=== PATIENT | female | born 1930 | race Caucasian/White ===

== ENCOUNTER 2019-01-17 10:38 | Emergency (ER) | payer MEDICARE, BC ==
--- NOTE | 2019-01-17 13:26 | UC ---
Knee Pain HPI - HPI Summary HPI Summary: WOKE UP THIS MORNING WITH LEFT KNEE PAIN AND SWELLING. PATIENT HAS PAIN WITH WEIGHTBEARING. DENIES ANY RECENT TRAUMA OR INJURY. NO PREVIOUS CHRONIC LEFT KNEE PAIN BUT PATIENT STATES SHE HAS OCCASIONAL JOINT PAIN ALL OVER HER BODY. TOOK 2 ALEVE THIS MORNING WITH NO IMPROVEMENT. - History of Current Complaint Chief Complaint: UCLowerExtremity Stated Complaint: KNEE PAIN Time Seen by Provider: 01/17/19 12:10 Hx Obtained From: Patient Onset/Duration: Sudden Onset, Lasting Hours, Still Present Severity Initially: Moderate Severity Currently: Moderate Pain Intensity: 10 Pain Scale Used: 0-10 Numeric Character: Sharp Aggravating Factor(s): Weight Bearing Alleviating Factor(s): Rest Associated Signs And Symptoms: Positive: Swelling Able to Bear Weight: Yes - WITH PAIN - Allergies/Home Medications Allergies/Adverse Reactions: Allergies Allergy/AdvReac Type Severity Reaction Status Date / Time Penicillins Allergy GI Upset Verified 01/17/19 10:55 scopolamine Allergy sweating Verified 01/17/19 10:56 BACTRIM Allergy Severe "KNOCKED Uncoded 02/04/16 19:30 ME FOR A LOOP, MADE ME SICK" Home Medications: Home Medications Atenolol 1 tab PO DAILY 01/17/19 [History Confirmed 01/17/19] Levothyroxine Sodium [Synthroid] 88 mcg PO DAILY 01/17/19 [History Confirmed ] Metoprolol Succinate 1 tab PO DAILY 01/17/19 [History Confirmed 01/17/19] Xarelto 15 mg(*) 1 tab PO DAILY 01/17/19 [History Confirmed 01/17/19] PMH/Surg Hx/FS Hx/Imm Hx Endocrine History: Hypothyroidism Cardiovascular History: Hypertension, Atrial Fibrillation - Surgical History Surgical History: Yes Surgery Procedure, Year, and Place: RLE ORIF, APPENDECTOMY, HYSTERECTOMY, BILAT CATARACTS - Family History Known Family History: Positive: None - Social History Alcohol Use: Daily Alcohol Amount: 2 OUNCES/DAY Substance Use Type: None Smoking Status (MU): Former Smoker Review of Systems All Other Systems Reviewed And Are Negative: Yes Constitutional: Positive: Negative Skin: Positive: Negative Respiratory: Positive: Negative Cardiovascular: Positive: Negative Gastrointestinal: Positive: Negative Musculoskeletal: Positive: Arthralgia, Decreased ROM, Edema. Negative: Calf Tenderness Physical Exam Triage Information Reviewed: Yes Appearance: Well-Appearing, No Pain Distress, Well-Nourished Vital Signs: Initial Vital Signs Temp 98.2 F 01/17/19 10:52 Pulse 55 01/17/19 10:52 Resp 16 01/17/19 10:52 BP 188/78 01/17/19 10:52 Pulse Ox 100 01/17/19 10:52 Vital Signs Reviewed: Yes Eyes: Positive: Conjunctiva Clear ENT: Positive: Hearing grossly normal Neck: Positive: Supple Respiratory: Positive: No respiratory distress, No accessory muscle use Cardiovascular: Positive: Pulses Normal Abdomen Description: Positive: Soft Musculoskeletal: Positive: ROM Limited @ - LEFT KNEE FLEXION, Edema @ - LEFT KNEE SLIGHTLY SWOLLEN, Other: - NO JOINT LINE TENDERNESS OR TENDERNESS OVER ANY BONY PROMINENCES. MCL AND LCL INTACT TO STRESS TESTING. NEG LACHMANS. NEG DRAWERS SIGNS. NEG MCMURRAYS. EQUIVOCAL PATELLAR APPREHENSION TEST. MILD TENDERNESS OVER PATELLAR LIGAMENT. NO TENDERNESS OVER QUADRICEPS TENDON. DECREASED ROM (FLEXION). Neurological: Positive: Alert Psychological: Positive: Age Appropriate Behavior Skin: Negative: Rashes Diagnostics - Radiology LEFT KNEE XRAYS Radiology Interpretation Completed By: Radiologist Summary of Radiographic Findings: SMALL JOINT EFFUSION, NO FRACTURE IS SEEN Knee Pain Course/Dx - Course Course Of Treatment: LEFT KNEE X-RAY TODAY SHOWS A SMALL JOINT EFFUSION BUT NO BONY INJURY. SUSPECT PATELLOFEMORAL SYNDROME AND OSTEOARTHRITIS CONTRIBUTING CONDITIONS TO PATIENT 'S SYMPTOMS. HAVE ADVISED FOLLOW-UP WITH ORTHOPEDICS NEXT WEEK FOR FURTHER EVALUATION. KNEE IMMOBILIZER NEEDED FOR COMFORT. HAVE ENCOURAGED DAILY RANGE OF MOTION EXERCISES. - Differential Dx/Diagnosis Provider Diagnosis: Osteoarthritis of left knee, Patellofemoral arthralgia of left knee Discharge - Sign-Out/Discharge Documenting (check all that apply): Patient Departure All imaging exams completed and their final reports reviewed: Yes - Discharge Plan Condition: Stable Disposition: HOME Prescriptions: traMADol TAB* [Ultram*] 50 mg PO Q6HR PRN #10 tab MDD 4 PRN Reason: Pain Patient Education Materials: Osteoarthritis (ED), Patellofemoral Pain Syndrome (ED) Referrals: Guicho Talley MD [Medical Doctor] - 1 Week Additional Instructions: X-RAY OF YOUR LEFT KNEE TODAY SHOWS A JOINT EFFUSION BUT NO BONY INJURY. KNEE IMMOBILIZER WILL HELP WITH DISCOMFORT AND MOBILITY. BE SURE TO GO THROUGH SLOW RANGE OF MOTION EXERCISES DAILY TO PREVENT STIFFENING UP AND MAKING THE DISCOMFORT WORSE. TYLENOL NEEDED FOR DISCOMFORT. TRAMADOL FOR BREAKTHROUGH. REST, ICE, COMPRESS, ELEVATE. CALL ORTHOPEDICS TODAY TO SCHEDULE A FOLLOW-UP APPOINTMENT FOR NEXT WEEK. - Billing Disposition and Condition Condition: STABLE Disposition: Home
[2019-01-17 14:10] VITALS: BP 166/70
== END 2019-01-17 13:40 | disposition home or self-care (01) ==
LOC: UCEAST 10:38
DX: M17.12 Unilateral primary osteoarthritis, left knee (principal); I10 Essential (primary) hypertension; E03.9 Hypothyroidism, unspecified; I48.91 Unspecified atrial fibrillation; Z88.0 Allergy status to penicillin; Z79.01 Long term (current) use of anticoagulants; Z87.891 Personal history of nicotine dependence
CPT/HCPCS: 99212; G0463